=== PATIENT | female | born 1970 | race Hispanic/Latino ===

== ENCOUNTER → 2017-09-30 | Outpatient (CLI) | payer OTHER ==
--- NOTE | 2017-09-30 11:13 | Diagnostic Imaging Report ---
PROCEDURE:CHEST 2 VIEWS TECHNIQUE:PA and lateral chest INDICATION:Chronic cough; inhaled dust COMPARISON:None. FINDINGS: Lungs are clear and symmetrically inflated. No pleural effusions. Normal heart size, mediastinal contour, and pulmonary vasculature. Normal skeleton. CONCLUSION: Normal chest. Dictated by: Artis Fernandez M.D. on 09/30/2017 at 11:14 Electronically approved by: Artis Fernandez M.D. on 09/30/2017 at 11:14
--- NOTE | 2017-10-14 08:52 | Diagnostic Imaging Report ---
#[id number] - MGSCRBIL #BILATERAL DIGITAL SCREENING MAMMOGRAM WITH CAD: 09/30/2017 CLINICAL: Routine screening. No prior exams were available for comparison. Current study contains 4 films. The tissue of both breasts is predominantly fatty. Current study was also evaluated with a Computer Aided Detection (CAD) system. There are benign calcifications in both breasts. No significant masses, calcifications, or other findings are seen in either breast. IMPRESSION: BENIGN There is no mammographic evidence of malignancy. A 1 year screening mammogram is recommended. The patient will be notified by letter of the results. oTy dumont/carlos:10/13/2017 07:06:47 Scaffold Setter: Heather KHAN(R)(M), [facility] letter sent: Normal Exam Mammogram BI-RADS: 2 Benign
== END ==
LOC: RAD 10:23
PROVIDERS: ATTEND Family Medicine
DX: Z12.31 Encounter for screening mammogram for malignant neoplasm of breast (principal); R05 Cough
CPT/HCPCS: 71046; 77067

== ENCOUNTER 2018-05-03 10:04 | Emergency (ER) | payer OTHER ==
[~2018-05-03] VITALS: Ht 177.8 cm; Wt 102.1 kg
--- OUTSIDE RECORDS SUMMARY | 2018-05-03 10:08 | XMS REPORT | Encounter Summary ---
Author Organization Unknown Address [address] [place] [id number] Phone [phone] Reason for Visit Medical Complaint Instructions 1. Lower respiratory tract infection Zithromax Z-Cory 250 mg tablet 2. Expiratory wheezing ProAir HFA 90 mcg/actuation aerosol inhaler prednisone 20 mg tablet 3. Feeling feverish rapid flu (A+B) 4. Pain in throat sore throat: care instructions rapid strep group A, throat 5. Acute sinusitis sinusitis: care instructions Discussion Note: None recorded. Plan of Care Patient Instructions take medication as directed. follow up pcp. otc zyrtec as needed. recommend chest xray if no improvement. Reminders Provider Appointments None recorded. Lab Rapid Flu (A+B) 07/18/2017 [facility] Rapid Strep Group a, Throat 07/18/2017 [facility] Referral None recorded. Procedures None recorded. Surgeries None recorded. Imaging None recorded. Medications Name Start Date prednisone 20 mg tablet Take 1 tablet twice a day by oral route with meals for 4 days. ProAir HFA 90 mcg/actuation aerosol inhaler Inhale 2 puffs every 4 hours by inhalation route as needed. Zithromax Z-Cory 250 mg tablet TAKE 2 TABLETS (500 MG) BY ORAL ROUTE ONCE DAILY FOR 1 DAY THEN 1 TABLET (250 MG) BY ORAL ROUTE ONCE DAILY FOR 4 DAYS Medications Administered None recorded. Vitals Height Weight BMI Blood Pressure 5 ft 10 in 230 lbs 33 kg/m2 120/78 mm[Hg] Lab Results Date Name Specimen Result Interpretation Description Value Range Status Address Rapid Strep Group a, Throat Result negative [facility]: [address] [place] [address] Swab Location Left and Right tonsillar pillars [facility]: [address] [place] [address] Rapid Flu (A+B) Influenza a negative [facility]: [address] [place] [address] Influenza B negative [facility]: [address] [place] [address] Allergies Code Code System Name Reaction Severity Status Onset 5933 RxNorm Iodine Anaphylaxis Active Problems Name Status Onset Date Source Dysfunction of Eustachian Tube Active Encounter Acute Sinusitis Active Encounter Acute Pyelonephritis Active Encounter Acute Urinary Tract Infection Active Encounter Nausea Active Encounter Procedures Date Name Performed by Anterior Colporrhaphy Information not available Hysterectomy Information not available Vaccine List Vaccine Type influenza, injectable, quadrivalent 02/27/2017 Social History Smoking Status Never Smoker Past Encounters 07/18/2017 Lower Respiratory Tract Infection; Expiratory Wheezing; Feeling Feverish; Pain in Throat; Acute Sinusitis Stevie Faustin, [facility]: [address] [place] [address], Ph. History of Present Illness Lwvud-Ldyyeflwsy-Twahxqs Reported By: Patient HPI: Location: head/sinuses, throat, chest. Quality: productive cough, sore throat, nasal/sinus congestion, dry cough. Duration: 45days. Severity: moderate. Onset/Timing: gradual. Context: no sick contacts, no foreign travel, non-smoker. Modifying factors: OTC medication. Associated Symptoms: no shortness of breath, no wheezing, no change in number of pillows needed to sleep at night, no sweats, no significant weight gain, no significant weight loss, no morning cough, no vomiting, no diarrhea, no rash, no nausea, no fever, no muscle aches, no headache, yellow-green, thick sputum, sore throat Review of Systems:ROS as noted in the HPI Review of Systems Basic Reported By: Patient Physical Exam Adult Basic, Adult Female Complete Reported By: Patient Constitutional: General Appearance: obese. Level of Distress: NAD. Ambulation: ambulating normally Psychiatric: Mental Status: active and alert Eyes: Lids and Conjunctivae: non-injected, no discharge Khp-Kfzc-Tnzye-Throat: Ears: no lesions on external ear, no outer ear tenderness, EACs clear, TMs clear. Hearing: no hearing loss. Nose: no lesions on external nose, sinus tenderness, nasal discharge--purulent; congestion. Lips, Teeth, and Gums: no mouth or lip ulcers. Oropharynx: moist mucous membranes, no erythema, no exudates, tonsils not enlarged Neck: Neck: trachea midline. Lymph Nodes: no cervical LAD Lungs: Respiratory effort: no dyspnea, no tachypnea, no use of accessory muscles, no intercostal retractions. Auscultation: expiratory wheezing, rhonchi Cardiovascular: Heart Auscultation: no murmurs
--- OUTSIDE RECORDS SUMMARY | 2018-05-03 10:08 | XMS REPORT | Encounter Summary ---
Author Organization Unknown Address [address] [place] [address] Phone [phone] Reason for Visit Medical Complaint Instructions 1. Acute suppurative otitis media without spontaneous rupture of ear drum Augmentin 875 mg-125 mg tablet ear infection (otitis media): care instructions 2. Allergic rhinitis Radha-D 24 Hour 180 mg-240 mg tablet,extended release allergies: care instructions montelukast 10 mg tablet Medrol (Cory) 4 mg tablets in a dose pack 3. Cough cough: care instructions benzonatate 100 mg capsule efnhtkgslxhhbdy-wamhnnvvgnwmxhu-LR 2 mg-30 mg-10 mg/5 mL syrup rapid flu (A+B) 4. Acute pharyngitis sore throat: care instructions Lidocaine Viscous 2 % mucosal solution rapid strep group A, throat 5. Postnasal discharge on posterior wall of pharynx 6. Body mass index 30+ - obesity walking for exercise: care instructions increase exercise eating healthy foods: care instructions Discussion Note: None recorded. Plan of Care Reminders Provider Appointments None recorded. Lab Rapid Strep Group a, Throat 10/09/2017 [facility] Rapid Flu (A+B) 10/09/2017 [facility] Referral None recorded. Procedures None recorded. Surgeries None recorded. Imaging None recorded. Medications Name Start Date Radha-D 24 Hour 180 mg-240 mg tablet,extended release Take 1 tablet every day by oral route. Augmentin 875 mg-125 mg tablet Take 1 tablet every 12 hours by oral route as directed for 7 days. benzonatate 100 mg capsule Take 1 capsule 3 times a day by oral route. rpiziojalwllabn-onjevijthuikwcq-ND 2 mg-30 mg-10 mg/5 mL syrup Take 10 mL every 4 hours by oral route. cholecalciferol (vitamin D3) 50,000 unit capsule TAKE ONE (1) CAPSULE(S) BY MOUTH ONCE A WEEK. fluticasone 50 mcg/actuation nasal spray,suspension levocetirizine 5 mg tablet Lidocaine Viscous 2 % mucosal solution Take 15 mL every 3 hours by oral route. Max: 300 mg/dose, 8 doses/day, gargle and spit Medrol (Cory) 4 mg tablets in a dose pack Take 1 dose pk by oral route as directed. montelukast 10 mg tablet Take 1 tablet every day by oral route. ProAir HFA 90 mcg/actuation aerosol inhaler INHALE 2 PUFF(S) EVERY 4 HOURS BY INHALATION ROUTE NEEDED. Medications Administered None recorded. Vitals Height Weight BMI Blood Pressure 5 ft 10 in 225 lbs 32.3 kg/m2 116/80 mm[Hg] Lab Results Date Name Specimen Result Interpretation Description Value Range Status Address Rapid Flu (A+B) Influenza a negative [facility]: [address] [place] [address] Influenza B negative [facility]: [address] [place] [address] Rapid Strep Group a, Throat Result negative [facility]: [address] [place] [address] Allergies Code Code System Name Reaction Severity Status Onset 5933 RxNorm Iodine Anaphylaxis Active Problems None recorded. Procedures Date Name Performed by 08/27/2001 Hysterectomy Information not available Anterior Colporrhaphy Information not available Vaccine List Vaccine Type influenza, injectable, quadrivalent 02/27/2017 Tdap 05/29/2015 Social History Smoking Status Never Smoker Past Encounters 10/09/2017 Acute Suppurative Otitis Media without Spontaneous Rupture of Ear Drum; Allergic Rhinitis; Cough; Acute Pharyngitis; Postnasal Discharge on Posterior Wall of Pharynx; Body Mass Index 30+ - Obesity Andre Bustos, [employer]-C: [address] [place] [address], Ph. History of Present Illness Throat-Oral Complaint Reported By: Patient HPI: Location: throat. Quality: sore throat, productive cough, congested. Severity: mild, moderate. Duration: 2 days; worsening symptoms decisioned to make appointment. Onset/Timing: sudden. Context: no sick contacts, no foreign travel, non-smoker. Associated Symptoms: no fever, no body aches, no sputum production, no shortness of breath, no sweats, no significant weight gain, no significant weight loss, no vomiting, no diarrhea, no rash, no nausea, fever, headache, wheezing, difficulty breathing at night, morning cough, sore throat Notes: sinus congestion and pressure Review of Systems:ROS as noted in the HPI Review of Systems Basic Reported By: Patient Physical Exam Adult Basic Reported By: Patient Constitutional: General Appearance: obese. Level of Distress: NAD. Ambulation: ambulating normally Psychiatric: Mental Status: active and alert. Orientation: to time, to place, to person Eyes: Lids and Conjunctivae: non-injected, no discharge, no pallor. Pupils: PERRLA. Corneas: grossly intact. EOM: EOMI. Lens: clear. Sclerae: non-icteric Asz-Miwc-Dkbqr-Throat: Ears: no lesions on external ear, no outer ear tenderness, EACs clear, TM erythematous, middle ear fluid. Hearing: no hearing loss. Nose: no lesions on external nose, nares patent, no septal deviation, nasal passages clear, no sinus tenderness, nasal discharge--rhinorrhea, post nasal drip. Lips, Teeth, and Gums: no mouth or lip ulcers, no bleeding gums, normal dentition. Oropharynx: moist mucous membranes, no exudates, erythema, tonsils enlarged 2+ Neck: Neck: supple, trachea midline, no masses, FROM. Lymph Nodes: anterior cervical LAD, posterior cervical LAD. Thyroid: no enlargement, non-tender, no nodules Lungs: Respiratory effort: no dyspnea, no tachypnea, no use of accessory muscles, no intercostal retractions. Auscultation: breath sounds normal Cardiovascular: Heart Auscultation: RRR, no murmurs Neurologic: Gait and Station: normal gait, normal station Skin: Inspection and palpation: no rash, no lesions
--- OUTSIDE RECORDS SUMMARY | 2018-05-03 10:08 | XMS REPORT | Encounter Summary ---
Author Organization Unknown Address [address] [place] [address] Phone [phone] Reason for Visit Medical Complaint Instructions 1. Perennial allergic rhinitis fluticasone 50 mcg/actuation nasal spray,suspension allergies: care instructions Medrol (Cory) 4 mg tablets in a dose pack 2. Allergic asthma ProAir HFA 90 mcg/actuation aerosol inhaler Bromfed DM 2 mg-30 mg-10 mg/5 mL syrup 3. Body mass index 30+ - obesity body mass index: care instructions Discussion Note Pt is in NAD; Verbalizes understanding of all instructions with no questions at this time. Plan of Care Patient Instructions Take fluticasone as needed for congestion. Rice one spray in each nostril twice a day. Take a warm, steamy shower, blow your nose thereafter, and spray in each nostril. Tilt your head up for about 10 seconds and breath through your mouth. Do not sniff or snort the medication in or else the medication will go to your throat and not be absorbed appropriately. Start Bromfed DM for cough. Start ProAir Inhalers 2 puffs every 4-6 hrs as needed for shortness of breath/wheezing. Take Sterpid taper as directed and with food to avoid GI discomfort. Take medications as prescribed and follow up with a PCP or customer advisor specialist within 2-3 if symptoms worsen as discussed. In case of emergency call 911 or go to nearest ER. Recommend follow a low sodium/fat/carb diet and exercise 30-45 mins/d 3-4 days a week once symptoms resolve. Reminders Provider Appointments None recorded. Lab None recorded. Referral None recorded. Procedures None recorded. Surgeries None recorded. Imaging None recorded. Medications Name Start Date Bromfed DM 2 mg-30 mg-10 mg/5 mL syrup Take 10 mL every 4-6 hours by oral route as needed for 5 days. cholecalciferol (vitamin D3) 50,000 unit capsule TAKE ONE (1) CAPSULE(S) BY MOUTH ONCE A WEEK. fluticasone 50 mcg/actuation nasal spray,suspension Rice 2 sprays every day by intranasal route as needed. Medrol (Cory) 4 mg tablets in a dose pack Take PO as directed ProAir HFA 90 mcg/actuation aerosol inhaler Inhale 2 puffs every 4-6 hours by inhalation route as needed. Medications Administered None recorded. Vitals Height Weight BMI Blood Pressure 5 ft 10 in 225 lbs 32.3 kg/m2 116/75 mm[Hg] Lab Results None recorded. Allergies Code Code System Name Reaction Severity Status Onset 5933 RxNorm Iodine Anaphylaxis Active Problems Name Status Onset Date Source Body Mass Index 30+ - Obesity Active 01/28/2018 Perennial Allergic Rhinitis Active 01/28/2018 Asthma Active 01/28/2018 Allergic Asthma Active 01/28/2018 Procedures Date Name Performed by 08/27/2001 Hysterectomy Information not available Anterior Colporrhaphy Information not available Vaccine List Vaccine Type influenza, injectable, quadrivalent 02/27/2017 Tdap 05/29/2015 Social History Smoking Status Never Smoker Past Encounters 01/28/2018 Perennial Allergic Rhinitis; Allergic Asthma; Body Mass Index 30+ - Obesity Sunitha Fitzgerald OUTSIDE SALES ACCOUNT REPRESENTATIVE-C: [address] [place] [address], Ph. History of Present Illness Evvwg-Kbtnbztduw-Ttnahwv Reported By: Patient HPI: Location: head/sinuses, chest. Quality: nasal/sinus congestion, dry cough. Duration: 3days. Severity: moderate. Onset/Timing: gradual. Context: no sick contacts, no foreign travel, non-smoker, allergies. Modifying factors: OTC medication. Associated Symptoms: no sputum production, no shortness of breath, no wheezing, no change in number of pillows needed to sleep at night, no sweats, no significant weight gain, no significant weight loss, no morning cough, no sore throat, no vomiting, no diarrhea, no rash, no nausea, no fever, no muscle aches, no headache; nasal congestion, post nasal drip, and dry cough Note:<div>
</div> Review of Systems Basic Reported By: Patient Constitutional: Constitutional: no fever Eyes: Eyes: no eye complaints Pqlg-Trjt-Tortj-Throat: Ears: no ear complaints. Nose: nose/sinus problems. Mouth/Throat: no sore throat, no bleeding gums, no mouth complaints, no teeth problems Cardiovascular: Cardiovascular: no chest pain, no shortness of breath, no known heart murmur Respiratory: Respiratory: no wheezing, no shortness of breath, cough Gastrointestinal: Gastrointestinal: no abdominal pain, no vomiting / diarrhea Genitourinary: Genitourinary: no urinary complaints, no discharge Musculoskeletal: Musculoskeletal: no muscle aches, no muscle weakness, no arthralgias/joint pain, no back pain Skin: Skin: no abnormal / changing mole, no jaundice, no rashes Neurologic: Neurologic: no loss of consciousness, no weakness, no numbness, no seizures, no dizziness, no headaches Physical Exam Adult Basic, Adult Female Complete Reported By: Patient Constitutional: General Appearance: obese. Level of Distress: NAD. Ambulation: ambulating normally Psychiatric: Mental Status: active and alert. Orientation: to time, to place, to person Eyes: Lids and Conjunctivae: non-injected, no discharge, no pallor. Corneas: grossly intact. Lens: clear Pcw-Aohf-Lwjxv-Throat: Ears: no lesions on external ear, no outer ear tenderness, EACs clear, TMs clear. Hearing: no hearing loss. Nose: no lesions on external nose, nares patent, no septal deviation, nasal passages clear, no sinus tenderness, nasal discharge--rhinorrhea, post nasal drip; B/L NTs pale and edematous. Lips, Teeth, and Gums: no mouth or lip ulcers, no bleeding gums, normal dentition. Oropharynx: moist mucous membranes, no erythema, no exudates, tonsils not enlarged Neck: Neck: supple. Lymph Nodes: no cervical LAD Lungs: Respiratory effort: no dyspnea, no tachypnea, no use of accessory muscles, no intercostal retractions. Auscultation: breath sounds normal Cardiovascular: Heart Auscultation: RRR, no murmurs Neurologic: Gait and Station: normal gait, normal station. Cranial Nerves: grossly intact
--- OUTSIDE RECORDS SUMMARY | 2018-05-03 10:08 | XMS REPORT ---
Author Author [facility] Address Unknown Phone Unavailable Care Team Providers Care Jewel Bearing Grinder Name Role Phone ANNE BEATTY Unavailable Unavailable Problems This patient has no known problems. Allergies, Adverse Reactions, Alerts This patient has no known allergies or adverse reactions. Medications This patient has no known medications. Results Test Description Test Time Test Comments Text Results Atomic Results Result Comments MAMMOGRAPHY DIGITAL SCR BILAT [place] [address] Patient Name: DANAE JORDAN MR #: [id number] : 1970 Age/Sex: 47/F Req #: [id number] Adm Physician: Ordered by: ANNE BEATTY MD Report #: [id number] Location: [facility] Room/Bed: Procedure: [id number] MG/MAMMOGRAPHY DIGITAL SCR BILAT Exam Date: 09/30/17 Exam Time: 1346 REPORT STATUS: Signed #[id number] - MGSCRBIL #BILATERAL DIGITAL SCREENING MAMMOGRAM WITH CAD: 09/30/2017 CLINICAL: Routine screening. No prior exams were available for comparison. Current study contains 4 films. The tissue of both breasts is predominantly fatty. Current study was also evaluated with a Computer Aided Detection (CAD) system. There are benign calcifications in both breasts. No significant masses, calcifications, or other findings are seen in either breast. IMPRESSION: BENIGN There is no mammographic evidence of malignancy. A 1 year screening mammogram is recommended. The patient will be notified by letter of the results. Yolande dumont/rahul:10/13/2017 07:06:47 Roustabout: Heather MURPHY)([place]), [facility] letter sent: Normal Exam Mammogram BI-RADS: 2 Benign Dictated By: YOLANDE MENDEZ DO 5 Transcribed By: RAHUL on 10/13/17705 COPY TO: ANNE BEATTY MD CHEST 2 VIEWS [place] [address] Patient Name: DANAE JORDAN MR #: [id number] : 1970 Age/Sex: 47/F Req #: [id number] [facility] Physician: Ordered by: ANNE BEATTY MD Report #: [id number] Location: RAD Room/Bed: Procedure: [id number] DX/CHEST 2 VIEWS Exam Date: 09/30/17 Exam Time: 1020 REPORT STATUS: Signed PROCEDURE: CHEST 2 VIEWS TECHNIQUE: PA and lateral chest INDICATION: Chronic cough; inhaled dust COMPARISON: None. FINDINGS: Lungs are clear and symmetrically inflated. No pleural effusions. Normal heart size, mediastinal contour, and pulmonary vasculature. Normal skeleton. CONCLUSION: Normal chest. Dictated by: Terri Fernandez M.D. on 09/30/2017 at 11:14 Electronically approved by: Terri Fernandez M.D. on 09/30/2017 at 11:14 Dictated By: TERRI FERNANDEZ MD 111 Transcribed By: ARAVIND on 09/30/171113 COPY TO: ANNE BEATTY MD
--- OUTSIDE RECORDS SUMMARY | 2018-05-03 10:08 | XMS REPORT | Continuity of Care Document ---
Author Author [facility] Interface Address Unknown Phone Unavailable Problems Problem Status Onset Date Classification Date Reported Comments Source Allergic asthma 01/28/2018 Diagnosis 01/28/2018 [facility] Perennial allergic rhinitis 01/28/2018 Diagnosis 01/28/2018 [facility] Body mass index 30+ - obesity 01/28/2018 Diagnosis 01/28/2018 [facility] Body Mass Index 30+ - Obesity 01/28/2018 Problem 01/28/2018 [facility] Perennial Allergic Rhinitis 01/28/2018 Problem 01/28/2018 [facility] Asthma 01/28/2018 Problem 01/28/2018 [facility] Allergic Asthma 01/28/2018 Problem 01/28/2018 [facility] Cough 10/09/2017 Diagnosis 10/09/2017 [facility] Postnasal discharge on posterior wall of pharynx 10/09/2017 Diagnosis 10/09/2017 [facility] Acute pharyngitis 10/09/2017 Diagnosis 10/09/2017 [facility] Acute suppurative otitis media without spontaneous rupture of ear drum 10/09/2017 Diagnosis 10/09/2017 [facility] Allergic rhinitis 10/09/2017 Diagnosis 10/09/2017 [facility] Lower respiratory tract infection 07/18/2017 Diagnosis 07/18/2017 [facility] Expiratory wheezing 07/18/2017 Diagnosis 07/18/2017 [facility] Feeling feverish 07/18/2017 Diagnosis 07/18/2017 [facility] Pain in throat 07/18/2017 Diagnosis 07/18/2017 [facility] Acute sinusitis 07/18/2017 Diagnosis 07/18/2017 [facility] Dysfunction of Eustachian Tube Problem 07/18/2017 [facility] Acute Sinusitis Problem 07/18/2017 [facility] Acute Pyelonephritis Problem 07/18/2017 [facility] Acute Urinary Tract Infection Problem 07/18/2017 [facility] Nausea Problem 07/18/2017 [facility] Medications Medication Details Route Status Patient Instructions Ordering Provider Order Date Source Prednisone 20 MG Oral Tablet prednisone 20 mg tablet Take 1 tablet twice a day by oral route with meals for 4 days. Active [facility] 200 ACTUAT Albuterol 0.09 MG/ACTUAT Metered Dose Inhaler [ProAir] ProAir HFA 90 mcg/actuation aerosol inhaler Inhale 2 puffs every 4-6 hours by inhalation route as needed. Active [facility] Azithromycin 250 MG Oral Tablet Zithromax Z-Cory 250 mg tablet TAKE 2 TABLETS (500 MG) BY ORAL ROUTE ONCE DAILY FOR 1 DAY THEN 1 TABLET (250 MG) BY ORAL ROUTE ONCE DAILY FOR 4 DAYS Active [facility] 24 HR Fexofenadine hydrochloride 180 MG / Pseudoephedrine Hydrochloride 240 MG Extended Release Oral Tablet [Radha-D] Radha-D 24 Hour 180 mg- 240 mg tablet,extended release Take 1 tablet every day by oral route. Active [facility] Amoxicillin 875 MG / Clavulanate 125 MG Oral Tablet [Augmentin] Augmentin 875 mg-125 mg tablet Take 1 tablet every 12 hours by oral route as directed for 7 days. Active [facility] benzonatate 100 MG Oral Capsule benzonatate 100 mg capsule Take 1 capsule 3 times a day by oral route. Active [facility] Brompheniramine Maleate 0.4 MG/ML / Dextromethorphan Hydrobromide 2 MG/ML / Pseudoephedrine Hydrochloride 6 MG/ML Oral Solution [id number] 2 mg-30 mg-10 mg/5 mL syrup Take 10 mL every 4 hours by oral route. Active [facility] Cholecalciferol 19235 UNT Oral Capsule cholecalciferol (vitamin D3) 50,000 unit capsule TAKE ONE (1) CAPSULE(S) BY MOUTH ONCE A WEEK. Active [facility] Fluticasone propionate 0.05 MG/ACTUAT Metered Dose Nasal [place] fluticasone 50 mcg/actuation nasal spray,suspension [place] 2 sprays every day by intranasal route as needed. Active [facility] levocetirizine dihydrochloride 5 MG Oral Tablet levocetirizine 5 mg tablet Active [facility] Lidocaine Hydrochloride 20 MG/ML Mucous Membrane Topical Solution Lidocaine Viscous 2 % mucosal solution Take 15 mL every 3 hours by oral route. Max: 300 mg/dose, 8 doses/day, gargle and spit Active [facility] Medrol (Cory) 4 mg tablets in a dose pack Medrol (Cory) 4 mg tablets in a dose pack Take PO as directed Active [facility] montelukast 10 MG Oral Tablet montelukast 10 mg tablet Take 1 tablet every day by oral route. Active [facility] Brompheniramine Maleate 0.4 MG/ML / Dextromethorphan Hydrobromide 2 MG/ML / Pseudoephedrine Hydrochloride 6 MG/ML Oral Solution [Bromfed DM] Bromfed DM 2 mg-30 mg-10 mg/5 mL syrup Take 10 mL every 4-6 hours by oral route as needed for 5 days. Active [facility] Allergies, Adverse Reactions, Alerts Substance Category Reaction Severity Reaction type Status Date Reported Comments Source Iodine Anaphylaxis Allergy to substance 10/05/2013 [facility] Immunizations Immunization Date Given Site Status Last Updated Comments Source influenza, injectable, quadrivalent 02/27/2017 completed [facility] Tdap 05/29/2015 completed [facility] Results Order Name Results Value Reference Range Date Interpretation Comments Source Influenza A negative 10/09/2017 [facility] Influenza B negative 10/09/2017 [facility] RESULT negative 10/09/2017 [facility] RESULT negative 07/18/2017 [facility] SWAB LOCATION Left and Right tonsillar pillars 07/18/2017 [facility] Influenza A negative 07/18/2017 [facility] Influenza B negative 07/18/2017 [facility] Vital Signs Vital Sign Value Date Comments Source Diastolic (mm Hg) 75 01/28/2018 [facility] Height 70 01/28/2018 [facility] Systolic (mm Hg) 116 01/28/2018 [facility] Weight 225 01/28/2018 [facility] Diastolic (mm Hg) 80 10/09/2017 [facility] Height 70 10/09/2017 [facility] Systolic (mm Hg) 116 10/09/2017 [facility] Weight 225 10/09/2017 [facility] Diastolic (mm Hg) 78 07/18/2017 [facility] Height 70 07/18/2017 [facility] Systolic (mm Hg) 120 07/18/2017 [facility] Weight 230 07/18/2017 [facility] Encounters Location Location Details Encounter Type Encounter Number Reason For Visit Attending Provider ADM Date DC Date Status Source [place] - [facility] - [id number] GallegosC: [address] [place] [address], Ph. [id number] Stevie Faustin 07/18/2017 [facility] [place] [facility] [id number] Andre Bustos, [employer]-C: [address] [place] [address], Ph. [id number] Andre Bustos 10/09/2017 [facility] [place] [facility] - [id number] Sunitha Fitzgerald, [employer]-C: [address] [place] [address], Ph. [id number] Snuitha Fitzgerald 01/28/2018 [facility] Procedures Procedure Code Date Perfomer Comments Source Hysterectomy 08/27/2001 [facility] Anterior Colporrhaphy 18227 [facility] Hysterectomy [facility]
[2018-05-03 10:26] LABS: BASOPHILS % 0.4 % (0.0-1.0); EOSINOPHILS # (AUTO) 0.1 (0.0-0.4); HEMATOCRIT 40.3 % (34.2-44.1); HEMOGLOBIN 13.9 g/dL (12.0-16.0); LYMPHOCYTES # (AUTO) 2.1 (1.0-3.2); LYMPHOCYTES % 26.5 % (18.0-39.1); MEAN CORPUSCULAR HEMOGLOBIN 32.3 pg (28-32); MEAN CORPUSCULAR HGB CONC 34.5 g/dL (31-35); MEAN CORPUSCULAR VOLUME 93.5 fL (81-99); MONOCYTES # (AUTO) 0.5 (0.2-0.8); MONOCYTES % 5.9 % (4.4-11.3); NEUTROPHILS # (AUTO) 5.3 (2.1-6.9); NEUTROPHILS % 65.8 % (38.7-80.0); PLATELET COUNT 276 x10e3/uL (140-360); RED BLOOD COUNT 4.31 x10e6/uL (3.6-5.1); RED CELL DISTRIBUTION WIDTH 13.1 % (11.7-14.4)
--- NOTE | 2018-05-03 10:47 | Diagnostic Imaging Report ---
EXAMINATION: Head CT HISTORY: Dizziness, hypertension, nausea, unsteady gait on the left. COMPARISON: None. TECHNIQUE: Multidetector axial images were obtained without contrast from the foramen magnum to the vertex . The images were reconstructed using brain and bone algorithms. Thin section brain images were reformatted into coronal and sagittal planes. Image quality: Motion/streaking artifact limits the evaluation of the skull base and posterior cranial fossa. Dose modulation, iterative reconstruction, and/or weight based adjustment of the mA/kV was utilized to reduce the radiation dose to as low as reasonably achievable. FINDINGS: Parenchyma: 1. No abnormal densities. 2. No mass or hemorrhage. No CT evidence of acute territorial cortical vascular insult. Extra-axial spaces:No abnormal density. No extra-axial fluid collections Brain volume: Normal for age. Ventricles: No hydrocephalus or displacement. Arteries: No density suggestive of thrombus. Dural sinuses: No abnormal density. Extra-axial spaces: No abnormal density. Foramen magnum: No mass, Chiari malformation, or basilar invagination. Sella: No obvious mass. Paranasal/mastoid sinuses: Imaged portions unremarkable. Skull/Scalp: No lytic or blastic lesions. No fractures. IMPRESSION: Normal head CT, particularly no intracranial mass, hemorrhage or infarcts. Signed by: Dr. Julia Thomas M.D. on 05/03/2018 10:44 AM
[2018-05-03 10:50] LABS: ALANINE AMINOTRANSFERASE 21 IU/L (0-55); ALBUMIN/GLOBULIN RATIO 1.5 (0.8-2.0); ALKALINE PHOSPHATASE 79 IU/L (40-150); ANION GAP 13.7 mmol/L (8-16); BLOOD UREA NITROGEN 12 mg/dL (7-26); BUN/CREATININE RATIO 15 (6-25); CALCIUM 9.5 mg/dL (8.4-10.2); CARBON DIOXIDE 26 mmol/L (22-29); CHLORIDE 102 mmol/L (98-107); CREATININE, SERUM 0.78 mg/dL (0.57-1.11); EST GLOMERULAR FILTRATION RATE > 60 ML/MIN (60-); GLUCOSE 211 mg/dL (74-118); POTASSIUM 3.7 mmol/L (3.5-5.1); SODIUM 138 mmol/L (136-145)
[2018-05-03 11:56] LABS: CLARITY,URINE CLEAR (CLEAR); COLOR,URINE STRAW (YELLOW)
[2018-05-03 11:57] LABS: LEUKOCYTE ESTERASE ,URINE NEGATIVE (NEGATIVE); NITRITE,URINE NEGATIVE (NEGATIVE); PROTEIN,URINE DIPSTICK NEGATIVE (NEGATIVE)
[2018-05-03 11:58] LABS: BILIRUBIN,URINE NEGATIVE (NEGATIVE); KETONES,URINE NEGATIVE (NEGATIVE); URINE UROBILINOGEN 0.2 mg/dL (0.2 - 1)
[2018-05-03] MEDS ORDERED: LOSARTAN POTASSIUM 25 MG TAB PO ONE (12:00)
[2018-05-03] MEDS ORDERED: METFORMIN HCL 500 MG TAB CR PO ONE (12:00)
[2018-05-03 12:04] LABS: BACTERIA,URINE RARE /HPF; EPITHELIAL CELLS,URINE RARE /LPF; WBC,URINE (MAN) 0-5 /HPF (0-5)
[2018-05-03 12:09] LABS: CHOL/HDL RATIO 3.8 (3.0-3.6)
[2018-05-03 13:16] VITALS: BP 147/82
== END 2018-05-03 13:18 | disposition home or self-care (01) ==
LOC: ER 10:16
DX: R42 Dizziness and giddiness (principal); H81.12 Benign paroxysmal vertigo, left ear
CPT/HCPCS: 36415; 70450; 80053; 80061; 81001; 83036; 84484; 85025; 93005; 99283

== ENCOUNTER 2019-08-23 19:31 | Emergency (ER) | payer BC, OTHER ==
[~2019-08-23] VITALS: Ht 177.8 cm; Wt 102.1 kg
[2019-08-23] MEDS ORDERED: IBUPROFEN600 MG PO (20:14)
[2019-08-23] MEDS ORDERED: ROBAXIN-750750 MG PO (20:15)
== END 2019-08-23 20:35 | disposition home or self-care (01) ==
LOC: FSED 19:31
DX: S16.1XXA Strain of muscle, fascia and tendon at neck level, initial encounter (principal); S39.012A Strain of muscle, fascia and tendon of lower back, initial encounter; S00.511A Abrasion of lip, initial encounter; S10.83XA Contusion of other specified part of neck, initial encounter; S70.02XA Contusion of left hip, initial encounter; V43.52XA Car driver injured in collision with other type car in traffic accident, initial encounter; Y92.488 Other paved roadways as the place of occurrence of the external cause
CPT/HCPCS: 99282

== ENCOUNTER → 2020-05-28 | Outpatient (CLI) | payer BC ==
[~2020-05-28] MED LIST: IBUPROFEN600 MG PO; ROBAXIN-750750 MG PO
[2020-05-28 15:52] LABS: FREE T4 (FREE THYROXINE) 1.05 ng/dL (0.8-1.8); THYROID STIMULATING HORMONE 1.146 uIU/mL (0.350-4.940)
== END ==
LOC: LAB 14:39
PROVIDERS: ATTEND Internal Medicine Pulmonary Disease
DX: E07.9 Disorder of thyroid, unspecified (principal); E03.9 Hypothyroidism, unspecified
CPT/HCPCS: 36415; 83036; 84439; 84443; 84479

== ENCOUNTER → 2020-06-28 | Outpatient (CLI) | payer OTHER ==
[~2020-06-28] MED LIST changes: +COVID-19 VACC, MRNA(MODERNA)/PF 100 MCG/0.5 ML VIAL IM ONE
== END ==
LOC: VACCPMC 08:30
DX: Z23 Encounter for immunization (principal); Z20.828 Contact with and (suspected) exposure to other viral communicable diseases

== ENCOUNTER → 2020-08-06 | Outpatient (CLI) | payer OTHER | END | DRG 951 | LOC: VACCPMC 09:34 | DX: Z23 Encounter for immunization (principal); Z20.822 Contact with and (suspected) exposure to COVID-19 | CPT/HCPCS: 0012A; 91301 ==

== ENCOUNTER → 2021-03-08 | Outpatient (CLI) | payer BC ==
[~2021-03-08] MED LIST changes: -COVID-19 VACC, MRNA(MODERNA)/PF 100 MCG/0.5 ML VIAL IM ONE
[2021-03-08 13:29] LABS: BASOPHILS % 0.3 % (0.0-1.0); EOSINOPHILS # (AUTO) 0.1 (0.0-0.4); EOSINOPHILS % 1.6 % (0.0-6.0); HEMATOCRIT 39.2 % (34.2-44.1); HEMOGLOBIN 13.2 g/dL (12.0-16.0); LYMPHOCYTES # (AUTO) 2.7 (1.0-3.2); LYMPHOCYTES % 34.1 % (18.0-39.1); MEAN CORPUSCULAR HGB CONC 33.7 g/dL (31-35); MONOCYTES # (AUTO) 0.5 (0.2-0.8); MONOCYTES % 5.7 % (4.4-11.3); NEUTROPHILS # (AUTO) 4.6 (2.1-6.9); PLATELET COUNT 346 x10e3/uL (140-360); RED BLOOD COUNT 4.26 x10e6/uL (3.6-5.1); RED CELL DISTRIBUTION WIDTH 13.4 % (11.7-14.4)
== END ==
LOC: RAD 11:57
PROVIDERS: ATTEND Internal Medicine
DX: R06.00 Dyspnea, unspecified (principal)
CPT/HCPCS: 36415; 71046; 82784; 82785; 85025; 86001; 86003

== ENCOUNTER → 2021-05-01 | Outpatient (CLI) | payer OTHER ==
[~2021-05-01] MED LIST changes: +COVID-19 VACC, MRNA(MODERNA)/PF 100 MCG/0.5 ML VIAL IM ONE
== END ==
LOC: VACCPMC 12:43
DX: Z23 Encounter for immunization (principal); Z20.822 Contact with and (suspected) exposure to COVID-19
CPT/HCPCS: 91301

== ENCOUNTER 2021-06-26 21:38 | Emergency (ER) | payer OTHER ==
[~2021-06-26 21:38] MED LIST changes: -COVID-19 VACC, MRNA(MODERNA)/PF 100 MCG/0.5 ML VIAL IM ONE
[2021-06-26] MEDS ORDERED: CASIRIVIMAB/IMDEVIMAB 10 ML in SODIUM CHLORIDE 0.9% 100 ML IV ONE (21:45)
[2021-06-26] MEDS ORDERED: REMDESIVIR 200MG 200 MG in SODIUM CHLORIDE 0.9% 100 ML IV ONE (21:45)
[2021-06-26 23:01] VITALS: BP 126/73
== END 2021-06-26 23:14 | disposition home or self-care (01) ==
LOC: ER 21:41
DX: U07.1 COVID-19 (principal); R50.9 Fever, unspecified; R05.9 Cough, unspecified; J45.909 Unspecified asthma, uncomplicated
CPT/HCPCS: 99283; J7050

== ENCOUNTER 2022-05-02 13:30 | Emergency (ER) | payer BC, OTHER ==
[~2022-05-02] VITALS: Ht 180.3 cm; Wt 99.8 kg
[2022-05-02] MEDS ORDERED: AMOX TR-K CLV1 EAC2 PO (14:24)
== END 2022-05-02 14:38 | disposition home or self-care (01) ==
LOC: FSED 13:58
DX: R05.9 Cough, unspecified (principal); B34.9 Viral infection, unspecified; R09.89 Other specified symptoms and signs involving the circulatory and respiratory systems; E11.9 Type 2 diabetes mellitus without complications; J45.909 Unspecified asthma, uncomplicated
CPT/HCPCS: 83518; 87400; 99282

== ENCOUNTER → 2023-10-14 | Day surgery (SDC) | payer BC ==
[2023-10-12 16:18] LABS: BASOPHILS % 0.3 % (0.0-1.0); EOSINOPHILS # (AUTO) 0.2 (0.0-0.4); EOSINOPHILS % 3.4 % (0.0-6.0); HEMATOCRIT 37.8 % (34.2-44.1); HEMOGLOBIN 13.1 g/dL (12.0-16.0); LYMPHOCYTES # (AUTO) 2.9 (1.0-3.2); LYMPHOCYTES % 40.4 % (18.0-39.1); MEAN CORPUSCULAR HEMOGLOBIN 31.5 pg (28-32); MEAN CORPUSCULAR HGB CONC 34.7 g/dL (31-35); MEAN CORPUSCULAR VOLUME 90.9 fL (81-99); MONOCYTES # (AUTO) 0.4 (0.2-0.8); MONOCYTES % 5.4 % (4.4-11.3); NEUTROPHILS # (AUTO) 3.5 (2.1-6.9); NEUTROPHILS % 50.2 % (38.7-80.0); PLATELET COUNT 345 x10e3/uL (140-360); RED BLOOD COUNT 4.16 x10e6/uL (3.6-5.1); RED CELL DISTRIBUTION WIDTH 13.9 % (11.7-14.4); WHITE BLOOD COUNT 7.05 x10e3/uL (4.8-10.8)
[2023-10-12 16:34] LABS: ANION GAP 16.6 mmol/L (8-16); CREATININE, SERUM 0.84 mg/dL (0.57-1.11); POTASSIUM 4.6 mmol/L (3.5-5.1); URIC ACID 4.2 mg/dL (2.6-8.0)
[~2023-10-14] MED LIST changes: +AMOX TR-K CLV1 EAC2 PO; +BREO ELLIPTA 21 EACH INH; +DEXAMETHASONE SOD PHOS INJ 4 MG/ML SDV ONE; +FENTANYL CITRATE/PF 100MCG/2 ML INJ ONE; +IOPAMIDOL 610MG/1ML 300 MG/ML VIAL IV ONE; +LIDOCAINE HCL 2% LOCAL INJ 5 ML SDV VIAL INJ ONE; +METFORMIN HCL500 MG PO; +MIDAZOLAM HCL 2 MG/2 ML VIAL ONE; +ONDANSETRON HCL INJ 2MG/ML 2ML 2 MG/ML VIAL ONE; +PEPCID AC10 MG PO; +PROPOFOL IV EMULSION 10 MG/ML 20 ML VIAL ONE; +SEVOFLURANE INHAL SOLN 250 ML PEN BTL ONE; +ZYRTEC10 M3 PO
[2023-10-14] MEDS: GENTAMICIN 80MG/NS 100 ML 200 ML IV ONE (08:32)
[2023-10-14] MEDS: CEFTRIAXONE 1 GM VIAL ONE (08:34)
[2023-10-14] MEDS: LACTATED RINGER'S 1,000 ML ONE (08:34)
[2023-10-14 10:55] VITALS: BP 116/70; PULSE 65; RESP 16; O2SAT 99
== END | disposition home or self-care (01) ==
LOC: OR 08:07
PROVIDERS: ATTEND Urology
DX: N13.1 Hydronephrosis with ureteral stricture, not elsewhere classified (principal); Z46.6 Encounter for fitting and adjustment of urinary device; N20.0 Calculus of kidney; N81.10 Cystocele, unspecified; N36.41 Hypermobility of urethra; N95.2 Postmenopausal atrophic vaginitis; R31.29 Other microscopic hematuria; J45.909 Unspecified asthma, uncomplicated; K21.9 Gastro-esophageal reflux disease without esophagitis; Z91.041 Radiographic dye allergy status; Z01.812 Encounter for preprocedural laboratory examination; Z01.818 Encounter for other preprocedural examination; Z79.1 Long term (current) use of non-steroidal anti-inflammatories (NSAID); Z79.4 Long term (current) use of insulin; Z79.84 Long term (current) use of oral hypoglycemic drugs; Z79.899 Other long term (current) drug therapy
CPT/HCPCS: 36415 ×2; 52332; 52344; 74018; 74420; 80048; 82948; 84550; 85025; 87086; C1758; C1769; C2617; J0696; J1100; J1580; J2001; J2250; J2405; J2704; J3010; J7121; Q9967

== ENCOUNTER 2023-10-24 18:51 | Inpatient (IN) | payer BC ==
[~2023-10-24] VITALS: Ht 180.3 cm; Wt 99.8 kg
[~2023-10-24 18:51] MED LIST changes: -DEXAMETHASONE SOD PHOS INJ 4 MG/ML SDV ONE; -FENTANYL CITRATE/PF 100MCG/2 ML INJ ONE; -IOPAMIDOL 610MG/1ML 300 MG/ML VIAL IV ONE; -LIDOCAINE HCL 2% LOCAL INJ 5 ML SDV VIAL INJ ONE; -MIDAZOLAM HCL 2 MG/2 ML VIAL ONE; -ONDANSETRON HCL INJ 2MG/ML 2ML 2 MG/ML VIAL ONE; -PROPOFOL IV EMULSION 10 MG/ML 20 ML VIAL ONE; -SEVOFLURANE INHAL SOLN 250 ML PEN BTL ONE
[2023-10-24 19:31] LABS: BASOPHILS % 0.2 % (0.0-1.0); EOSINOPHILS # (AUTO) 0.1 (0.0-0.4); EOSINOPHILS % 1.7 % (0.0-6.0); HEMOGLOBIN 11.9 g/dL (12.0-16.0); LYMPHOCYTES # (AUTO) 2.5 (1.0-3.2); LYMPHOCYTES % 30.1 % (18.0-39.1); MEAN CORPUSCULAR HEMOGLOBIN 31.5 pg (28-32); MEAN CORPUSCULAR VOLUME 89.9 fL (81-99); MONOCYTES # (AUTO) 0.8 (0.2-0.8); MONOCYTES % 9.2 % (4.4-11.3); NEUTROPHILS # (AUTO) 4.8 (2.1-6.9); NEUTROPHILS % 58.6 % (38.7-80.0); PLATELET COUNT 259 x10e3/uL (140-360); RED BLOOD COUNT 3.78 x10e6/uL (3.6-5.1); RED CELL DISTRIBUTION WIDTH 14.1 % (11.7-14.4); WHITE BLOOD COUNT 8.25 x10e3/uL (4.8-10.8)
[2023-10-24 19:47] LABS: ALBUMIN 3.4 g/dL (3.5-5.0); ALBUMIN/GLOBULIN RATIO 1.1 (0.8-2.0); ANION GAP 14.7 mmol/L (8-16); BILIRUBIN,TOTAL 0.9 mg/dL (0.2-1.2); CALCIUM 9.4 mg/dL (8.4-10.2); CREATININE, SERUM 0.81 mg/dL (0.57-1.11); POTASSIUM 3.7 mmol/L (3.5-5.1); TOTAL PROTEIN 6.6 g/dL (6.5-8.1)
[2023-10-24] MEDS: SODIUM CHLORIDE 0.9% 1000ML 1,000 ML IV ONE (19:51)
[2023-10-24] MEDS: ONDANSETRON HCL INJ 2MG/ML 2ML 2 MG/ML VIAL IV STA (19:52)
[2023-10-24] MEDS: KETOROLAC TROMETHAMINE 30 MG/ML VIAL IV STA (19:52)
[2023-10-24] MEDS: ACETAMINOPHEN 325 MG TAB PO ONE (19:53)
[2023-10-24 20:11] LABS: CLARITY,URINE SL CLOUDY (CLEAR); COLOR,URINE YELLOW (YELLOW); PH,URINE 7 (5 - 7)
[2023-10-24 20:12] LABS: BILIRUBIN,URINE NEGATIVE (NEGATIVE); GLUCOSE, URINE NEGATIVE (NEGATIVE); KETONES,URINE NEGATIVE (NEGATIVE); LEUKOCYTE ESTERASE ,URINE LARGE (NEGATIVE); NITRITE,URINE NEGATIVE (NEGATIVE); PROTEIN,URINE DIPSTICK TRACE (NEGATIVE); URINE UROBILINOGEN 0.2 mg/dL (0.2 - 1)
[2023-10-24] MEDS: PROMETHAZINE 12.5MG/ NACL 0.9% 12.5 MG/50 ML BAG IV ONE (20:16)
[2023-10-24 20:21] LABS: BACTERIA,URINE MODERATE /HPF; WBC,URINE (MAN) >50 /HPF (0-5)
[2023-10-24 20:22] LABS: EPITHELIAL CELLS,URINE RARE /LPF
[2023-10-24] MEDS ORDERED: DEXTROSE 50% SYRINGE 50 ML IV PRN (20:45)
[2023-10-24 21:30] VITALS: BP_SYST 117; BP_SYST 120; BP_DIAS 64; BP_DIAS 69; PULSE 72; PULSE 96; RESP 18; TEMP 98.2; TEMP 99.2; O2SAT 100; O2SAT 98
[2023-10-24] MEDS: SODIUM CHLORIDE 0.9% 1000ML 1,000 ML IV SCH (21:49)
[2023-10-24] MEDS: INSULIN REGULAR, HUMAN 100 UNIT/1 ML SQ SCH (21:53)
[2023-10-24] MEDS ORDERED: DOCUSATE SODIUM 100 MG CAP PO PRN (22:30)
[2023-10-24] MEDS ORDERED: HYDRALAZINE HCL 20 MG/ML VIAL IV PRN (22:30)
[2023-10-24] MEDS ORDERED: ALBUTEROL SULF 0.083% NEB SOLN 3 ML NEB NEB PRN (22:30)
[2023-10-24] MEDS ORDERED: MAGNESIUM/ALUMINUM/SIMETHICONE 30 ML UDC PO PRN (22:30)
[2023-10-24] MEDS ORDERED: MELATONIN 3 MG TAB PO PRN (22:30)
[2023-10-24 23:14] VITALS: PULSE 104; RESP 18; O2SAT 95
[2023-10-25] VITALS (11 sets, daily range): BP systolic 98–130; BP diastolic 58–90; PULSE 67–100; RESP 16–20; TEMP 97.9–100.5; O2SAT 94–100
[2023-10-25 05:57] LABS: BASOPHILS % 0.2 % (0.0-1.0); EOSINOPHILS # (AUTO) 0.3 (0.0-0.4); EOSINOPHILS % 4.8 % (0.0-6.0); HEMATOCRIT 31.8 % (34.2-44.1); HEMOGLOBIN 10.9 g/dL (12.0-16.0); LYMPHOCYTES # (AUTO) 2.4 (1.0-3.2); LYMPHOCYTES % 39.7 % (18.0-39.1); MEAN CORPUSCULAR HEMOGLOBIN 31.5 pg (28-32); MEAN CORPUSCULAR HGB CONC 34.3 g/dL (31-35); MEAN CORPUSCULAR VOLUME 91.9 fL (81-99); MONOCYTES # (AUTO) 0.6 (0.2-0.8); MONOCYTES % 9.9 % (4.4-11.3); NEUTROPHILS # (AUTO) 2.7 (2.1-6.9); NEUTROPHILS % 45.2 % (38.7-80.0); PLATELET COUNT 213 x10e3/uL (140-360); RED BLOOD COUNT 3.46 x10e6/uL (3.6-5.1); RED CELL DISTRIBUTION WIDTH 14.3 % (11.7-14.4); WHITE BLOOD COUNT 6.05 x10e3/uL (4.8-10.8)
[2023-10-25 06:05] LABS: ALBUMIN 2.8 g/dL (3.5-5.0); ANION GAP 11.5 mmol/L (8-16); BILIRUBIN,TOTAL 0.6 mg/dL (0.2-1.2); CALCIUM 8.8 mg/dL (8.4-10.2); CREATININE, SERUM 0.73 mg/dL (0.57-1.11); POTASSIUM 3.5 mmol/L (3.5-5.1); TOTAL PROTEIN 5.6 g/dL (6.5-8.1)
[2023-10-25] MEDS: LORATADINE 10 MG TAB PO SCH (08:51)
[2023-10-25] MEDS: HYDROCODONE/APAP 5MG-325MG TAB PO PRN (13:17)
[2023-10-25] MEDS: Morphine 4mg INJECTION 4 MG/ML INJ IV PRN (14:21)
[2023-10-25] MEDS: ONDANSETRON HCL INJ 2MG/ML 2ML 2 MG/ML VIAL IV PRN (14:21)
[2023-10-25] MEDS: ACETAMINOPHEN 325 MG TAB PO PRN (20:36)
[2023-10-25] MEDS: FAMOTIDINE 20 MG TAB PO SCH (20:36)
[2023-10-25] MEDS: GUAIFENESIN/DEXTROMETHORPHAN LIQD 5 ML UDC PO PRN (20:53)
[2023-10-26] VITALS (9 sets, daily range): BP systolic 96–128; BP diastolic 61–72; PULSE 75–100; RESP 16–20; TEMP 98.4–102; O2SAT 94–100
[2023-10-27] VITALS (11 sets, daily range): BP systolic 100–126; BP diastolic 54–77; PULSE 69–90; RESP 17–20; TEMP 98.3–98.8; O2SAT 96–100
[2023-10-27] MEDS: METHOCARBAMOL 750 MG TAB PO PRN (01:39)
[2023-10-28 03:38] VITALS: BP 113/70; PULSE 74; RESP 18; TEMP 97.5; O2SAT 97
[2023-10-28 06:33] VITALS: PULSE 72; RESP 18; O2SAT 96
[2023-10-28 08:00] VITALS: BP 113/70; PULSE 72; RESP 18; TEMP 97.5; O2SAT 96
[2023-10-28 08:31] VITALS: BP 130/78; PULSE 76; RESP 18; TEMP 98.2; O2SAT 98
[2023-10-28 11:48] VITALS: BP 125/74; PULSE 75; RESP 16; TEMP 98.6; O2SAT 97
== END 2023-10-28 15:20 | disposition home or self-care (01) | DRG 690 ==
LOC: ER 19:02 → ERHOLD 20:43 → MED/SURG2 21:15
PROVIDERS: ADMIT Internal Medicine Critical Care Medicine; ATTEND Internal Medicine Critical Care Medicine
DX: N13.6 Pyonephrosis (principal); B96.5 Pseudomonas (aeruginosa) (mallei) (pseudomallei) as the cause of diseases classified elsewhere; D35.01 Benign neoplasm of right adrenal gland; N81.10 Cystocele, unspecified; N95.2 Postmenopausal atrophic vaginitis; R31.29 Other microscopic hematuria; Z96.0 Presence of urogenital implants; D63.8 Anemia in other chronic diseases classified elsewhere; E11.9 Type 2 diabetes mellitus without complications; Z79.84 Long term (current) use of oral hypoglycemic drugs; J45.909 Unspecified asthma, uncomplicated; E66.9 Obesity, unspecified; Z68.30 Body mass index [BMI] 30.0-30.9, adult; Z79.899 Other long term (current) drug therapy; Z11.52 Encounter for screening for COVID-19
CPT/HCPCS: 36415; 74176; 80053; 81001; 82668; 82948; 83605; 85025; 86140; 87040; 87086; 87186; 94799; 99284; J0692; J0696; J1885; J2270; J2405; J2550; J7030; U0002

== ENCOUNTER 2023-12-28 09:29 | Emergency (ER) | payer BC ==
[~2023-12-28] VITALS: Ht 180.3 cm; Wt 99.8 kg
[2023-12-28 09:31] VITALS: PULSE 81; RESP 18; TEMP 99.2
[2023-12-28 10:11] LABS: BASOPHILS % 0.2 % (0.0-1.0); EOSINOPHILS # (AUTO) 0.1 (0.0-0.4); EOSINOPHILS % 1.7 % (0.0-6.0); HEMATOCRIT 34.7 % (34.2-44.1); HEMOGLOBIN 11.4 g/dL (12.0-16.0); LYMPHOCYTES # (AUTO) 1.5 (1.0-3.2); LYMPHOCYTES % 22.4 % (18.0-39.1); MEAN CORPUSCULAR HEMOGLOBIN 30.2 pg (28-32); MEAN CORPUSCULAR HGB CONC 32.9 g/dL (31-35); MONOCYTES # (AUTO) 0.6 (0.2-0.8); MONOCYTES % 9.4 % (4.4-11.3); NEUTROPHILS # (AUTO) 4.4 (2.1-6.9); PLATELET COUNT 273 x10e3/uL (140-360); RED BLOOD COUNT 3.77 x10e6/uL (3.6-5.1); RED CELL DISTRIBUTION WIDTH 13.4 % (11.7-14.4)
[2023-12-28] MEDS: SODIUM CHLORIDE 0.9% 1000ML 1,000 ML IV STA (10:16)
[2023-12-28] MEDS: IBUPROFEN 600 MG TAB PO STA (10:16)
[2023-12-28 10:34] LABS: ALBUMIN 3.3 g/dL (3.5-5.0); ALBUMIN/GLOBULIN RATIO 0.9 (0.8-2.0); ANION GAP 16.8 mmol/L (8-16); BILIRUBIN,TOTAL 1.1 mg/dL (0.2-1.2); CALCIUM 8.9 mg/dL (8.4-10.2); CREATININE, SERUM 0.88 mg/dL (0.57-1.11); POTASSIUM 3.8 mmol/L (3.5-5.1); TOTAL PROTEIN 6.8 g/dL (6.5-8.1)
[2023-12-28 11:43] LABS: BILIRUBIN,URINE NEGATIVE (NEGATIVE); CLARITY,URINE CLOUDY (CLEAR); COLOR,URINE YELLOW (YELLOW); GLUCOSE, URINE NEGATIVE (NEGATIVE); LEUKOCYTE ESTERASE ,URINE LARGE (NEGATIVE); NITRITE,URINE NEGATIVE (NEGATIVE); PH,URINE 6 (5 - 7); PROTEIN,URINE DIPSTICK TRACE (NEGATIVE); URINE UROBILINOGEN 0.2 mg/dL (0.2 - 1)
[2023-12-28 11:44] LABS: KETONES,URINE NEGATIVE (NEGATIVE)
[2023-12-28 11:56] LABS: BACTERIA,URINE MANY /HPF; EPITHELIAL CELLS,URINE MODERATE /LPF; WBC,URINE (MAN) >50 /HPF (0-5)
[2023-12-28] MEDS: LEVOFLOXACIN 250 MG TAB PO ONE (12:07)
[2023-12-28] MEDS: LEVOFLOXACIN 500 MG TAB PO ONE (12:07)
[2023-12-28 12:37] VITALS: BP 133/77; PULSE 78; RESP 18; TEMP 98.9; O2SAT 100
[2023-12-29] MEDS ORDERED: ULTRAM 50MG50 MG PO (02:15)
== END 2023-12-28 12:39 | disposition home or self-care (01) ==
LOC: ER 09:32
DX: N39.0 Urinary tract infection, site not specified (principal); Z96.0 Presence of urogenital implants; E11.9 Type 2 diabetes mellitus without complications; Z91.041 Radiographic dye allergy status; Z11.52 Encounter for screening for COVID-19; Z79.84 Long term (current) use of oral hypoglycemic drugs; Z79.899 Other long term (current) drug therapy; Z90.49 Acquired absence of other specified parts of digestive tract; Z90.710 Acquired absence of both cervix and uterus
CPT/HCPCS: 36415; 71045; 80053; 81001; 85025; 87086; 87186; 87400; 87420; 99284; J2543; J7030; U0002

== ENCOUNTER 2023-12-28 20:58 | Inpatient (IN) | payer BC, MEDICARE ==
[~2023-12-28] VITALS: Ht 180.3 cm; Wt 106.6 kg
[2023-12-28] MEDS ORDERED: ACETAMINOPHEN 1000 MG/100 ML 100 ML IV ONE (22:08)
[2023-12-28] MEDS: SODIUM CHLORIDE 0.9% 1000ML 1,000 ML IV STA ×2 (22:12)
[2023-12-28] MEDS: ONDANSETRON HCL INJ 2MG/ML 2ML 2 MG/ML VIAL IV STA (22:13)
[2023-12-28] MEDS: ACETAMINOPHEN 325 MG TAB PO STA (22:13)
[2023-12-28] MEDS: ACETAMINOPHEN 1000 MG/100 ML IV STA (22:13)
[2023-12-28] MEDS: KETOROLAC TROMETHAMINE 30 MG/ML VIAL IV STA (22:13)
[2023-12-28 22:24] LABS: BASOPHILS % 0.1 % (0.0-1.0); EOSINOPHILS % 0.3 % (0.0-6.0); HEMATOCRIT 30.5 % (34.2-44.1); HEMOGLOBIN 10.3 g/dL (12.0-16.0); LYMPHOCYTES # (AUTO) 0.6 (1.0-3.2); LYMPHOCYTES % 7.4 % (18.0-39.1); MEAN CORPUSCULAR HEMOGLOBIN 30.6 pg (28-32); MEAN CORPUSCULAR HGB CONC 33.8 g/dL (31-35); MEAN CORPUSCULAR VOLUME 90.5 fL (81-99); MONOCYTES # (AUTO) 0.8 (0.2-0.8); MONOCYTES % 10.8 % (4.4-11.3); NEUTROPHILS # (AUTO) 6.2 (2.1-6.9); NEUTROPHILS % 81.1 % (38.7-80.0); PLATELET COUNT 255 x10e3/uL (140-360); RED BLOOD COUNT 3.37 x10e6/uL (3.6-5.1); RED CELL DISTRIBUTION WIDTH 13.7 % (11.7-14.4); WHITE BLOOD COUNT 7.66 x10e3/uL (4.8-10.8)
[2023-12-28] MEDS ORDERED: IBUPROFEN 600 MG TAB ONE (22:28)
[2023-12-28 22:43] LABS: ALBUMIN 2.9 g/dL (3.5-5.0); ALBUMIN/GLOBULIN RATIO 0.9 (0.8-2.0); ANION GAP 14.9 mmol/L (8-16); BILIRUBIN,TOTAL 0.9 mg/dL (0.2-1.2); CALCIUM 8.5 mg/dL (8.4-10.2); POTASSIUM 3.9 mmol/L (3.5-5.1); TOTAL PROTEIN 6.1 g/dL (6.5-8.1)
[2023-12-28] MEDS ORDERED: SODIUM CHLORIDE 0.9% 1000ML 1,000 ML ONE (23:03)
[2023-12-28 23:04] LABS: TROPONIN I 0.002 ng/mL (0-0.300)
[2023-12-28 23:18] VITALS: TEMP 99.6
[2023-12-28] MEDS: SODIUM CHLORIDE 0.9% 1000ML 2,000 ML IV STA (23:33)
[2023-12-29] VITALS (31 sets, daily range): BP systolic 82–122; BP diastolic 23–93; PULSE 74–109; RESP 15–34; TEMP 98.2–103; O2SAT 94–100
[2023-12-29] MEDS: Morphine 4mg INJECTION 4 MG/ML INJ IV PRN (02:13)
[2023-12-29] MEDS ORDERED: ULTRAM 50MG50 MG PO (02:15)
[2023-12-29] MEDS: SODIUM CHLORIDE 0.9% 1000ML 1,000 ML IV STA (02:37)
[2023-12-29] MEDS ORDERED: IBUPROFEN 600 MG TAB PO PRN (03:00)
[2023-12-29] MEDS: SODIUM CHLORIDE 0.9% 1000ML 1,000 ML IV SCH (05:21)
[2023-12-29] MEDS: ONDANSETRON HCL INJ 2MG/ML 2ML 2 MG/ML VIAL IV PRN (06:59)
[2023-12-29] MEDS ORDERED: DEXTROSE 50% SYRINGE 50 ML IV PRN ×2 (07:30→19:45)
[2023-12-29 07:31] LABS: TROPONIN I 0.112 ng/mL (0-0.300)
[2023-12-29] MEDS: PROMETHAZINE 12.5MG/ NACL 0.9% 12.5 MG/50 ML BAG IV PRN (08:11)
[2023-12-29] MEDS: INSULIN REGULAR, HUMAN 100 UNIT/1 ML SQ SCH (08:21)
[2023-12-29] MEDS: TRAMADOL HCL 50 MG TAB PO PRN (11:10)
[2023-12-29 12:56] LABS: CLARITY,URINE CLOUDY (CLEAR); COLOR,URINE YELLOW (YELLOW); GLUCOSE, URINE NEGATIVE (NEGATIVE); LEUKOCYTE ESTERASE ,URINE SMALL (NEGATIVE); NITRITE,URINE NEGATIVE (NEGATIVE); PH,URINE 6 (5 - 7); PROTEIN,URINE DIPSTICK 2+ (NEGATIVE)
[2023-12-29 12:57] LABS: BILIRUBIN,URINE SMALL (NEGATIVE); KETONES,URINE NEGATIVE (NEGATIVE); URINE UROBILINOGEN 1 mg/dL (0.2 - 1)
[2023-12-29 13:06] LABS: BACTERIA,URINE MANY /HPF; EPITHELIAL CELLS,URINE FEW /LPF; RBC,URINE 21-50 /HPF (0-5); WBC,URINE (MAN) 21-50 /HPF (0-5)
[2023-12-29 13:23] LABS: TROPONIN I 0.476 ng/mL (0-0.300)
[2023-12-29 13:40] LABS: ANION GAP 14.3 mmol/L (8-16); CREATININE, SERUM 0.75 mg/dL (0.57-1.11)
[2023-12-29 13:42] LABS: POTASSIUM 3.3 mmol/L (3.5-5.1)
[2023-12-29 13:44] LABS: CALCIUM 6.4 mg/dL (8.4-10.2)
[2023-12-29] MEDS: SODIUM BICARBONATE 8.4% VIAL 50 ML in SODIUM CHLORIDE 0.45% 1,000 ML IV ONE (14:21)
[2023-12-29] MEDS: POTASSIUM CHLORIDE 20MEQ/100ML 100 ML IV SCH (14:22)
[2023-12-29] MEDS ORDERED: ALBUTEROL/IPRATROPIUM 3 ML NEB NEB PRN (19:45)
[2023-12-29] MEDS: CALCIUM CHLORIDE 13.6 MEQ in SODIUM CHLORIDE 0.9% 100 ML IV ONE (20:37)
[2023-12-29] MEDS: INSULIN LISPRO 100 UNIT/1 ML 3ML VIAL SQ SCH (21:00)
[2023-12-29] MEDS: FAMOTIDINE 20 MG TAB PO SCH (21:14)
[2023-12-29] MEDS: ACETAMINOPHEN 325 MG TAB PO PRN (21:14)
[2023-12-29] MEDS: ACETAMINOPHEN 325 MG TAB ONE (21:17)
[2023-12-30] VITALS (16 sets, daily range): BP systolic 101–148; BP diastolic 48–90; PULSE 74–109; RESP 15–29; TEMP 97.3–100.4; O2SAT 97–100
[2023-12-30 06:38] LABS: BASOPHILS % 0.2 % (0.0-1.0); EOSINOPHILS # (AUTO) 0.1 (0.0-0.4); EOSINOPHILS % 1.1 % (0.0-6.0); HEMATOCRIT 25.9 % (34.2-44.1); HEMOGLOBIN 8.4 g/dL (12.0-16.0); LYMPHOCYTES # (AUTO) 2.1 (1.0-3.2); LYMPHOCYTES % 24.5 % (18.0-39.1); MEAN CORPUSCULAR HEMOGLOBIN 30.4 pg (28-32); MEAN CORPUSCULAR HGB CONC 32.4 g/dL (31-35); MEAN CORPUSCULAR VOLUME 93.8 fL (81-99); MONOCYTES # (AUTO) 0.6 (0.2-0.8); MONOCYTES % 7.2 % (4.4-11.3); NEUTROPHILS # (AUTO) 5.7 (2.1-6.9); NEUTROPHILS % 66.8 % (38.7-80.0); PLATELET COUNT 200 x10e3/uL (140-360); RED BLOOD COUNT 2.76 x10e6/uL (3.6-5.1); RED CELL DISTRIBUTION WIDTH 14.3 % (11.7-14.4); WHITE BLOOD COUNT 8.57 x10e3/uL (4.8-10.8)
[2023-12-30 07:00] LABS: ALBUMIN 2.5 g/dL (3.5-5.0); ALBUMIN/GLOBULIN RATIO 0.9 (0.8-2.0); BILIRUBIN,TOTAL 1.1 mg/dL (0.2-1.2); CALCIUM 8.1 mg/dL (8.4-10.2); CREATININE, SERUM 0.78 mg/dL (0.57-1.11); TOTAL PROTEIN 5.4 g/dL (6.5-8.1)
[2023-12-30] MEDS: LORATADINE 10 MG TAB PO SCH (08:25)
[2023-12-30] MEDS: FLUTICASONE INH SCH (09:00)
[2023-12-30] MEDS: VILANTEROL INH SCH (09:00)
[2023-12-30] MEDS: ENOXAPARIN SOD INJ 40 MG/0.4 ML SYR SC SCH (17:49)
[2023-12-30] MEDS: LEVOFLOXACIN 500MG/D5W 100ML 100 ML IV SCH (17:53)
[2023-12-30] MEDS: SODIUM CHLORIDE 0.9% 250ML 250 ML ONE (18:12)
[2023-12-30] MEDS: BENZONATATE 100 MG CAP PO PRN (20:48)
[2023-12-31] VITALS (9 sets, daily range): BP systolic 108–136; BP diastolic 9–89; PULSE 75–101; RESP 16–20; TEMP 98–98.7; O2SAT 94–99
[2023-12-31 05:16] LABS: BASOPHILS % 0.1 % (0.0-1.0); EOSINOPHILS # (AUTO) 0.2 (0.0-0.4); EOSINOPHILS % 2.4 % (0.0-6.0); HEMATOCRIT 27.3 % (34.2-44.1); HEMOGLOBIN 8.8 g/dL (12.0-16.0); LYMPHOCYTES # (AUTO) 1.9 (1.0-3.2); MEAN CORPUSCULAR HEMOGLOBIN 29.9 pg (28-32); MEAN CORPUSCULAR HGB CONC 32.2 g/dL (31-35); MEAN CORPUSCULAR VOLUME 92.9 fL (81-99); MONOCYTES # (AUTO) 0.6 (0.2-0.8); MONOCYTES % 7.5 % (4.4-11.3); NEUTROPHILS # (AUTO) 4.7 (2.1-6.9); NEUTROPHILS % 63.7 % (38.7-80.0); PLATELET COUNT 203 x10e3/uL (140-360); RED BLOOD COUNT 2.94 x10e6/uL (3.6-5.1); RED CELL DISTRIBUTION WIDTH 14.1 % (11.7-14.4); WHITE BLOOD COUNT 7.38 x10e3/uL (4.8-10.8)
[2023-12-31 05:58] LABS: ALBUMIN 2.4 g/dL (3.5-5.0); ALBUMIN/GLOBULIN RATIO 0.8 (0.8-2.0); ANION GAP 13.9 mmol/L (8-16); BILIRUBIN,TOTAL 0.7 mg/dL (0.2-1.2); CALCIUM 8.2 mg/dL (8.4-10.2); CREATININE, SERUM 0.72 mg/dL (0.57-1.11); POTASSIUM 3.9 mmol/L (3.5-5.1); TOTAL PROTEIN 5.6 g/dL (6.5-8.1)
[2023-12-31] MEDS: ALBUTEROL/IPRATROPIUM 3 ML NEB NEB SCH (13:26)
[2024-01-01 04:07] VITALS: BP 123/75; PULSE 93; RESP 20; TEMP 97.1; O2SAT 95
[2024-01-01 07:26] VITALS: BP 124/66; PULSE 78; RESP 16; TEMP 98.2; O2SAT 100
[2024-01-01 07:49] VITALS: PULSE 87; RESP 16; O2SAT 96
[2024-01-01 08:03] VITALS: BP 124/66; PULSE 87; RESP 16; TEMP 98.2; O2SAT 96
[2024-01-01] MEDS ORDERED: ALBUTEROL1.25 MG/3 NEB (10:42)
[2024-01-01] MEDS ORDERED: COMPACT COMPRE1 EACH IH (10:42)
[2024-01-01] MEDS ORDERED: LEVAQ PO (10:43)
[2024-01-01 11:00] VITALS: PULSE 84; RESP 16; O2SAT 95
[2024-01-01 11:01] VITALS: PULSE 84; RESP 16; O2SAT 95
[2024-01-02] MEDS ORDERED: CEFTRIAXONE 2 GM in SODIUM CHLORIDE 0.9% 100 ML IV SCH (09:00)
== END 2024-01-01 11:31 | disposition home or self-care (01) | DRG 871 ==
LOC: ER 21:02 → ERHOLD 12-29 00:20 → ICU 12-29 01:55 → MED/SURG 12-30 22:02
PROVIDERS: ADMIT Internal Medicine; ATTEND Internal Medicine
PROC: 02HV33Z Insertion of Infusion Device into Superior Vena Cava, Percutaneous Approach (ICD-10-PCS; principal; 2023-12-29)
PROC: 3E04329 Introduction of Other Anti-infective into Central Vein, Percutaneous Approach (ICD-10-PCS; 2023-12-29)
DX: A41.81 Sepsis due to Enterococcus (principal); I21.A1 Myocardial infarction type 2; R65.21 Severe sepsis with septic shock; N13.6 Pyonephrosis; I87.1 Compression of vein; M79.89 Other specified soft tissue disorders; Z16.24 Resistance to multiple antibiotics; R31.29 Other microscopic hematuria; E83.51 Hypocalcemia; Z96.0 Presence of urogenital implants; D64.9 Anemia, unspecified; E11.9 Type 2 diabetes mellitus without complications; Z79.84 Long term (current) use of oral hypoglycemic drugs; K66.8 Other specified disorders of peritoneum; J45.909 Unspecified asthma, uncomplicated; I49.3 Ventricular premature depolarization; R07.89 Other chest pain; R74.8 Abnormal levels of other serum enzymes; E66.9 Obesity, unspecified; Z68.32 Body mass index [BMI] 32.0-32.9, adult; Z79.899 Other long term (current) drug therapy
CPT/HCPCS: 36415; 36569; 71045; 74176; 80048; 80053; 81001; 82550; 82948; 83605; 83690; 84484; 85025; 87040; 87086; 93005; 93306; 93971; 94640; 94799; 96372; 99252; 99284; J1650; J1885; J1956; J2185; J2270; J2405; J2543; J2550; J3480; J7030; J7050

== ENCOUNTER → 2024-01-15 | Day surgery (SDC) | payer BC ==
[2024-01-14 12:00] LABS: BASOPHILS % 0.3 % (0.0-1.0); EOSINOPHILS # (AUTO) 0.2 (0.0-0.4); EOSINOPHILS % 2.6 % (0.0-6.0); HEMATOCRIT 38.4 % (34.2-44.1); HEMOGLOBIN 12.5 g/dL (12.0-16.0); LYMPHOCYTES # (AUTO) 2.7 (1.0-3.2); LYMPHOCYTES % 42.7 % (18.0-39.1); MEAN CORPUSCULAR HEMOGLOBIN 29.8 pg (28-32); MEAN CORPUSCULAR HGB CONC 32.6 g/dL (31-35); MEAN CORPUSCULAR VOLUME 91.6 fL (81-99); MONOCYTES # (AUTO) 0.4 (0.2-0.8); MONOCYTES % 6.3 % (4.4-11.3); NEUTROPHILS % 47.9 % (38.7-80.0); PLATELET COUNT 360 x10e3/uL (140-360); RED BLOOD COUNT 4.19 x10e6/uL (3.6-5.1); RED CELL DISTRIBUTION WIDTH 13.8 % (11.7-14.4)
[2024-01-14 12:19] LABS: ANION GAP 18.5 mmol/L (8-16); CALCIUM 9.9 mg/dL (8.4-10.2); CREATININE, SERUM 0.85 mg/dL (0.57-1.11); POTASSIUM 4.5 mmol/L (3.5-5.1)
[~2024-01-15] MED LIST changes: +ALBUTEROL1.25 MG/3 NEB; +AZO BLADDER CO300 MG PO; +COMPACT COMPRE1 EACH IH; +DEXAMETHASONE SOD PHOS INJ 4 MG/ML SDV ONE; +FENTANYL CITRATE/PF 100MCG/2 ML INJ ONE; +IOPAMIDOL 610MG/1ML 300 MG/ML VIAL IV ONE; +KETOROLAC TROMETHAMINE 30 MG/ML VIAL ONE; +LEVAQ PO; +LIDOCAINE HCL 2% LOCAL INJ 5 ML SDV VIAL INJ ONE; +ONDANSETRON HCL INJ 2MG/ML 2ML 2 MG/ML VIAL ONE; +PROPOFOL IV EMULSION 10 MG/ML 20 ML VIAL ONE; +SEVOFLURANE INHAL SOLN 250 ML PEN BTL ONE; +TYLENOL325 MG PO; +ULTRAM 50MG50 MG PO
[2024-01-15] MEDS: LACTATED RINGER'S 1,000 ML ONE (14:36)
[2024-01-15] MEDS: GENTAMICIN 80MG/NS 100 ML 200 ML IV ONE (14:37)
[2024-01-15] MEDS: CEFTRIAXONE 1 GM VIAL ONE (14:38)
[2024-01-15 16:49] VITALS: TEMP 97.4
[2024-01-15] MEDS: PHENAZOPYRIDINE HCL 100 MG TAB ONE (17:23)
[2024-01-15 17:25] VITALS: BP 133/77; PULSE 73; RESP 16; O2SAT 99
== END | disposition home or self-care (01) ==
LOC: OR 12:59
PROVIDERS: ATTEND Urology
DX: N13.5 Crossing vessel and stricture of ureter without hydronephrosis (principal); N13.30 Unspecified hydronephrosis; Z46.6 Encounter for fitting and adjustment of urinary device; N81.10 Cystocele, unspecified; N36.41 Hypermobility of urethra; N95.2 Postmenopausal atrophic vaginitis; Q62.8 Other congenital malformations of ureter; K68.2 Retroperitoneal fibrosis; E11.9 Type 2 diabetes mellitus without complications; J45.909 Unspecified asthma, uncomplicated; K21.9 Gastro-esophageal reflux disease without esophagitis; K57.90 Diverticulosis of intestine, part unspecified, without perforation or abscess without bleeding; M26.609 Unspecified temporomandibular joint disorder, unspecified side; Z91.041 Radiographic dye allergy status; Z01.810 Encounter for preprocedural cardiovascular examination; Z01.812 Encounter for preprocedural laboratory examination; Z01.818 Encounter for other preprocedural examination; Z79.84 Long term (current) use of oral hypoglycemic drugs; Z79.899 Other long term (current) drug therapy; Z86.79 Personal history of other diseases of the circulatory system
CPT/HCPCS: 36415 ×2; 52351; 74018; 74420; 80048; 82948; 85025; 87086; 93005; C1758; C1769; J0696; J1100; J1580; J1885; J2001; J2405; J2704; J3010; J7121; Q9967

== ENCOUNTER 2024-07-10 16:29 | Emergency (ER) | payer BC ==
[~2024-07-10] VITALS: Ht 177.8 cm; Wt 94.8 kg
[~2024-07-10 16:29] MED LIST changes: -DEXAMETHASONE SOD PHOS INJ 4 MG/ML SDV ONE; -FENTANYL CITRATE/PF 100MCG/2 ML INJ ONE; -IOPAMIDOL 610MG/1ML 300 MG/ML VIAL IV ONE; -KETOROLAC TROMETHAMINE 30 MG/ML VIAL ONE; -LIDOCAINE HCL 2% LOCAL INJ 5 ML SDV VIAL INJ ONE; -ONDANSETRON HCL INJ 2MG/ML 2ML 2 MG/ML VIAL ONE; -PROPOFOL IV EMULSION 10 MG/ML 20 ML VIAL ONE; -SEVOFLURANE INHAL SOLN 250 ML PEN BTL ONE
[2024-07-10 16:40] VITALS: TEMP 98
[2024-07-10 16:54] LABS: BASOPHILS % 0.3 % (0.0-1.0); EOSINOPHILS # (AUTO) 0.2 (0.0-0.4); EOSINOPHILS % 3.6 % (0.0-6.0); HEMATOCRIT 39.9 % (34.2-44.1); HEMOGLOBIN 12.6 g/dL (12.0-16.0); LYMPHOCYTES # (AUTO) 2.8 (1.0-3.2); LYMPHOCYTES % 44.5 % (18.0-39.1); MEAN CORPUSCULAR HEMOGLOBIN 29.8 pg (28-32); MEAN CORPUSCULAR HGB CONC 31.6 g/dL (31-35); MEAN CORPUSCULAR VOLUME 94.3 fL (81-99); MONOCYTES # (AUTO) 0.4 (0.2-0.8); MONOCYTES % 6.9 % (4.4-11.3); NEUTROPHILS # (AUTO) 2.8 (2.1-6.9); NEUTROPHILS % 44.5 % (38.7-80.0); PLATELET COUNT 281 x10e3/uL (140-360); RED BLOOD COUNT 4.23 x10e6/uL (3.6-5.1); RED CELL DISTRIBUTION WIDTH 13.9 % (11.7-14.4); WHITE BLOOD COUNT 6.38 x10e3/uL (4.8-10.8)
[2024-07-10] MEDS: SODIUM CHLORIDE 0.9% 1000ML 1,000 ML IV STA (16:54)
[2024-07-10 16:57] LABS: CLARITY,URINE HAZY (CLEAR); COLOR,URINE YELLOW (YELLOW)
[2024-07-10 16:58] LABS: BACTERIA,URINE FEW /HPF; BILIRUBIN,URINE NEGATIVE (NEGATIVE); EPITHELIAL CELLS,URINE FEW /LPF; GLUCOSE, URINE NEGATIVE (NEGATIVE); KETONES,URINE NEGATIVE (NEGATIVE); LEUKOCYTE ESTERASE ,URINE NEGATIVE (NEGATIVE); NITRITE,URINE NEGATIVE (NEGATIVE); PH,URINE 6 (5 - 7); PROTEIN,URINE DIPSTICK NEGATIVE (NEGATIVE); URINE UROBILINOGEN 0.2 mg/dL (0.2 - 1); WBC,URINE (MAN) 0-5 /HPF (0-5)
[2024-07-10] MEDS ORDERED: ONDANSETRON HCL INJ 2MG/ML 2ML 2 MG/ML VIAL IV PRN (17:00)
[2024-07-10 17:09] LABS: ALBUMIN 3.9 g/dL (3.5-5.0); ALBUMIN/GLOBULIN RATIO 1.3 (0.8-2.0); ANION GAP 18.6 mmol/L (8-16); BILIRUBIN,TOTAL 0.9 mg/dL (0.2-1.2); CALCIUM 9.9 mg/dL (8.4-10.2); CREATININE, SERUM 0.83 mg/dL (0.57-1.11); POTASSIUM 3.6 mmol/L (3.5-5.1); TOTAL PROTEIN 6.9 g/dL (6.5-8.1)
[2024-07-10 18:11] VITALS: PULSE 65; RESP 16; O2SAT 100
[2024-07-10] MEDS: KETOROLAC TROMETHAMINE 30 MG/ML VIAL IV STA (18:23)
[2024-07-10] MEDS ORDERED: CEPHALEXIN500 MG PO (18:35)
[2024-07-10] MEDS ORDERED: KETOROLAC TROME10 MG PO (18:35)
[2024-07-10] MEDS ORDERED: ONDANSETRON ODT4 MG PO (18:35)
[2024-07-10 18:44] VITALS: TEMP 98
== END 2024-07-10 18:46 | disposition home or self-care (01) ==
LOC: ER 16:35
DX: R10.9 Unspecified abdominal pain (principal); E11.9 Type 2 diabetes mellitus without complications; Z85.89 Personal history of malignant neoplasm of other organs and systems
CPT/HCPCS: 36415; 74176; 80053; 81001; 85025; 87086; 99284; J1885; J7030

== ENCOUNTER 2024-09-14 11:05 | Emergency (ER) | payer BC ==
[~2024-09-14] VITALS: Ht 177.8 cm; Wt 101.6 kg
[~2024-09-14 11:05] MED LIST changes: +CEPHALEXIN500 MG PO; +KETOROLAC TROME10 MG PO; +ONDANSETRON ODT4 MG PO
[2024-09-14] MEDS: ALBUTEROL/IPRATROPIUM 3 ML NEB NEB ONE (11:36)
[2024-09-14] MEDS ORDERED: MEDROL4 M2 PO (11:53)
[2024-09-14] MEDS ORDERED: ALBUTEROL1.25 MG/3 NEB (11:53)
[2024-09-14 11:57] VITALS: PULSE 78; RESP 16
[2024-09-14 12:01] VITALS: PULSE 78; RESP 16; TEMP 97.8; O2SAT 97
== END 2024-09-14 12:01 | disposition home or self-care (01) ==
LOC: FSED 11:09
DX: R05.9 Cough, unspecified (principal); B34.9 Viral infection, unspecified; J45.909 Unspecified asthma, uncomplicated; E11.9 Type 2 diabetes mellitus without complications; Z11.52 Encounter for screening for COVID-19; Z85.89 Personal history of malignant neoplasm of other organs and systems
CPT/HCPCS: 0223U; 87400; 99283